=== PATIENT | female | born 2005 | race Caucasian/White ===

== ENCOUNTER 2024-05-16 21:30 | Emergency (ER) | payer OTHER ==
[~2024-05-16] VITALS: Ht 160 cm; Wt 109.1 kg
[2024-05-17] MEDS ORDERED: IBUP-1492 PO (00:54)
[2024-05-17] MEDS ORDERED: ACET-3385 PO (00:54)
[2024-05-17 01:03] VITALS: BP 129/79; PULSE 77; RESP 18; TEMP 98.3; O2SAT 98
[2024-05-17] MEDS: ACETAMINOPHEN 500 MG TABLET PO ONE (01:16)
[2024-05-17] MEDS: IBUPROFEN 600 MG TABLET PO ONE (01:16)
== END 2024-05-17 01:30 | disposition home or self-care (01) ==
LOC: EMS 21:30
DX: S93.491A Sprain of other ligament of right ankle, initial encounter (principal); X58.XXXA Exposure to other specified factors, initial encounter; Y93.01 Activity, walking, marching and hiking; Y92.89 Other specified places as the place of occurrence of the external cause; Y99.8 Other external cause status
CPT/HCPCS: 99283